=== PATIENT | male | born 1985 | race Hispanic/Latino ===

== ENCOUNTER 2018-07-24 14:46 | Emergency (ER) | payer MEDICARE ==
[2018-07-24] MEDS ORDERED: KETOROLAC TROMETHAMINE 60 MG/2 ML VIAL ONE (15:56)
[2018-07-24] MEDS ORDERED: ORPHENADRINE CITRATE 30 MG/ML ML ONE (15:56)
== END 2018-07-24 17:09 | disposition home or self-care (01) ==
LOC: EDH 14:46
DX: S00.83XA Contusion of other part of head, initial encounter (principal); S60.221A Contusion of right hand, initial encounter; S20.211A Contusion of right front wall of thorax, initial encounter; G89.29 Other chronic pain; V49.88XA Car occupant (driver) (passenger) injured in other specified transport accidents, initial encounter; Y93.89 Activity, other specified; Y92.410 Unspecified street and highway as the place of occurrence of the external cause; Y99.8 Other external cause status
CPT/HCPCS: 71046; 71100; 73130; 96372 ×2; 99284; J1885; J2360

== ENCOUNTER 2019-08-01 14:43 | Emergency (ER) | payer MEDICARE ==
[2019-08-01] MEDS ORDERED: ASPIRIN 325 MG TABLET ONE (15:11)
[2019-08-01 15:16] LABS: BASOPHILS % (AUTO) 0.4 % (0.0-5.0); EOSINOPHILS % (AUTO) 1.3 % (0.0-8.0); HEMATOCRIT 47.2 % (42-54); LYMPHOCYTES % (AUTO) 15.7 % (21.0-51.0); MEAN CORPUSCULAR HGB CONC 32.4 g/dL (32.0-36.0); MEAN CORPUSCULAR VOLUME 83.4 fL (79-99); MONOCYTES % (AUTO) 7.2 % (3.0-13.0); NEUTROPHILS % (AUTO) 74.3 % (40.0-77.0); PLATELET COUNT (AUTO) 297 K/uL (130-400); RED BLOOD CELL COUNT(AUTO) 5.66 MIL/uL (4.50-6.20); RED CELL DISTRIBUTION WIDTH 14.5 % (11.0-15.5); WHITE BLOOD COUNT (AUTO) 13.7 K/uL (4.8-10.8)
[2019-08-01 15:27] LABS: INR 0.89 (0.85-1.15); PARTIAL THROMBOPLASTIN TIME 25.2 SEC (26.3-35.5); PROTHROMBIN TIME 9.7 SEC (9.6-11.6)
[2019-08-01 15:30] LABS: CREATININE 1.1 mg/dL (0.5-1.5); POTASSIUM 3.9 mmol/L (3.5-5.1)
[2019-08-01 15:35] LABS: ALBUMIN 3.1 g/dL (3.5-5.0); BILIRUBIN,TOTAL 0.1 mg/dL (0.2-1.0); TOTAL PROTEIN, SERUM 7.2 g/dL (6.0-8.3)
== END 2019-08-01 17:19 | disposition left against medical advice (07) ==
LOC: EDH 14:43
DX: R07.89 Other chest pain (principal); G89.29 Other chronic pain; G47.30 Sleep apnea, unspecified
CPT/HCPCS: 36415; 71045; 80053; 82550; 83880; 84484; 85025; 85610; 85730; 87040; 93005

== ENCOUNTER 2025-02-16 20:18 | Emergency (ER) | payer MEDICARE, OTHER ==
[~2025-02-16] VITALS: Ht 175.3 cm; Wt 191.4 kg
[2025-02-16 20:28] VITALS: PULSE 107; RESP 22; O2SAT 100
--- NOTE | 2025-02-16 20:33 | NUR ---
INITIAL BIPAP SETTINGS IPAP - 16 EPAP - 8 RATE - 18 FIO2 - 80%
--- NOTE | 2025-02-16 20:35 | NUR ---
UPDATED BIPAP SETTINGS IPAP - 16 EPAP - 8 RATE - 18 FIO2 - 35%
[2025-02-16 20:36] LABS: ABG BASE EXCESS 1.4 mmol/L (-2.0-3.0); ABG HCO3 25.6 mmol/L (21.0-28.0); ABG OXYGEN SATURATION 99.2 % (94.0-98.0); ABG PCO2 39 mmHg (35-48); ABG PH 7.433 (7.350-7.450); CARBON MONOXIDE 1.6 % (0.5-1.5); DEVICE COMMENT RR JOSERN; PO2, ARTERIAL BG 248.1 mmHg (83.0-108.0); TEMPERATURE, CELSIUS BG 37.0 CELSIUS (35.5-37.0); VENT MODE, BG BIPAP 16,8 (ROOM AIR)
[2025-02-16 20:38] VITALS: PULSE 115; RESP 20; O2SAT 99
[2025-02-16 20:54] LABS: IMMATURE GRANULOCYTE ABSOLUTE 0.28 K/uL (0-1); NUCLEATED RED BLOOD CELLS 0.0 % (0.0-0.19); PLATELET COUNT (AUTO) 348 K/uL (130-400); RED BLOOD CELL COUNT(AUTO) 4.60 MIL/uL (4.50-6.20); RED CELL DISTRIBUTION WIDTH 15.7 % (11.0-15.5); WHITE BLOOD COUNT (AUTO) 12.7 K/uL (4.8-10.8)
[2025-02-16 21:07] LABS: CREATININE 1.0 mg/dL (0.5-1.3); GLOMERULAR FILTR. RATE CALC 98.0 mL/min (>90); GLUCOSE,RANDOM 146.0 mg/dL (70-105); SODIUM SERUM 141.0 mmol/L (136-145); UREA NITROGEN, BLOOD 14.0 mg/dL (7-18)
[2025-02-16 21:16] LABS: CREATINE KINASE, TOTAL 81.0 U/L (21-232)
--- NOTE | 2025-02-16 21:32 | EKG ---
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
[2025-02-16] MEDS: furoSEMIDE 100MG VIAL 10 MG/ML VIAL IVP ONE (21:41)
[2025-02-16 22:30] LABS: ADD UA MICROSCOPIC NO; APPEARANCE,URINE CLEAR (CLEAR); GLUCOSE, URINE (UA) NEGATIVE (NEGATIVE); LEUKOCYTE ESTERASE ,URINE NEGATIVE Leu/uL (NEGATIVE); NITRATE,URINE NEGATIVE (NEGATIVE); OCCULT BLOOD,URINE NEGATIVE (NEGATIVE)
[2025-02-16 22:32] VITALS: PULSE 111; RESP 18
[2025-02-16 22:33] VITALS: PULSE 111; RESP 18; O2SAT 99
--- NOTE | 2025-02-16 23:24 | ERN ---
ED Note History of Present Illness Stated Complaint: SOB Chief Complaint: Dyspnea/Respdistress Time Seen by MD: 20:36 Dictation: This is a 39-year-old morbidly obese male with known history of chronic respiratory failure and obstructive sleep apnea syndrome on CPAP presented to the emergency room with a 2 days of dyspnea respiratory distress and increasing swelling. He also continues to smoke and has some baseline cough with scant amounts of sputum. No fever chills or rigors. No hemoptysis. No chest pain pressure PND orthopnea no palpitations. Temperature 99 pulse 107 respirations 26 blood pressure 188/102 pulse oximetry 100% on room air Patient has chronic medical problems include COPD, history of congestive heart failure in the past details are unclear, DVT in both the legs, tobacco dependence. Patient also has a obstructive sleep apnea syndrome and uses CPAP at night Allergies: Coded Allergies: No Known Allergies (Unverified Allergy, Unknown, 07/24/18) Home Meds Active Scripts Furosemide (Lasix 20Mg Tab) 20 Mg Tablet, 1 TAB PO DAILY for 10 Days, #20 TAB 0 Refills Prov:RAUL YOUSSEF MD 02/16/25 Azithromycin (Zithromax) 500 Mg Tablet, 1 TAB PO DAILY for 5 Days, #5 TAB 0 Refills Prov:RAUL YOUSSEF MD 02/16/25 Prednisone (Prednisone) 20 Mg Tablet, 1 TAB PO AD for 6 Days, #14 TAB 0 Refills TAKE 1 TAB BY MOUTH THREE TIMES PER DAY X3 DAYS, THEN TAKE 1 TAB BY MOUTH TWICE A DAY X2 DAYS, THEN TAKE 1 TAB BY MOUTH ONCE A DAY X1 DAY. Prov:RAUL YOUSSEF MD 02/16/25 Past Medical History Past Medical History: CHF, COPD, Unknown Surgical History: Unknown RN Note Reviewed/Agreed w/PFSH: Yes Review of System Dictation Constitutional: Negative for fever,chills, and weight loss Eyes: Negative for injury, pain,redness, and discharge ENT: Negative for injury,pain or swelling Cardiovascular: Negative for chest pain, palpitations, and positive for edema Respiratory: Positive for shortness of breath, mild cough, and wheezing, Abdomen/GI: Negative for abdominal pain, nausea, vomiting, diarrhea, and constipation Back: Negative for injury and pain : Negative for injury, bleeding and discharge MS/Extremity: Negative for injury and deformity Skin: Negative for rash, and discoloration Neuro: Negative for headache, weakness, numbness, tingling, and seizure Psych: Negative for suicide ideation, homicidal ideation, and hallucinations Initial Vital Sign VS Vital Signs Date Time Temp Pulse Resp B/P (MAP) Pulse Ox O2 Delivery O2 Flow Rate FiO2 02/16/25 20:19 99.0 107 26 188/102 100 BIPAP 02/16/25 20:28 80 02/16/25 20:33 Physical Exam Dictation General: awake, alert, NAD extreme obesity Head/Face: Normocephalic, atraumatic Eyes: PERRL, EOMI, vision at baseline ENT: oral cavity clear, TMs clear, no signs of infection Neck: Trachea midline, supple, no nuchal rigidity Cardiovascular: RRR, normal S1/S2, No MRGs, no JVD Respiratory: Mild respiratory distress, decreased breath sounds bilaterally with prolonged expiratory phase, end expiratory wheezes to auscultation Abdomen: Soft, non-tender, non-distended, normal bowel sounds, no guarding or rebound. Skin: Warm, dry, normal turgor, no rash MS/Extremity: Pulses equal, no cyanosis, neurovascular intact, FROM Neuro: COAx4, GCS 15, strength 5/5, CN 2-12 intact, normal cerebellar exam, nor mal gait, Psych: Normal behavior, mood, and affect normal Extremities-1+ pitting edema without any palpable cords, Homans sign is negative Results (Laboratory/Radiology) Laboratory/Radiology Laboratory Tests Test 02/16/25 20:34 02/16/25 20:41 02/16/25 22:17 Blood Gas Specimen Type Arterial Arterial Blood pH 7.433 (7.350-7.450) Arterial Blood Partial Pressure CO2 39 mmHg (35-48) Arterial Blood Partial Pressure O2 248.1 mmHg (83.0-108.0) H Arterial Blood HCO3 25.6 mmol/L (21.0-28.0) Arterial Blood Oxygen Saturation 99.2 % (94.0-98.0) H Arterial Blood Base Excess 1.4 mmol/L (-2.0-3.0) Hemoglobin (Blood Gas) 12.2 g/dL (13.5-17.5) L Sodium (Blood Gas) 137 MMOL/L (136-145) Bedside Potassium (Blood Gas) 3.7 MMOL/L (3.4-4.5) Bedside Chloride (Blood Gas) 104 MMOL/L (98-107) Bedside Glucose (Blood Gas) 147 MG/DL (65-95) H Bedside Ionized Calcium (Blood Gas) 1.17 MMOL/L (1.15-1.33) Bedside Lactic Acid (Blood Gas) 1.13 MMOL/L (0.36-0.75) H Blood Gas Temperature 37.0 CELSIUS (35.5-37.0) Blood Gas Respiration Rate 18.0 min. Blood Gas Vent Mode BIPAP 16,8 (ROOM AIR) FiO2 80.0 % Blood Gas Specimen Comment RR JOSERN White Blood Count 12.7 K/uL (4.8-10.8) H Red Blood Count 4.60 MIL/uL (4.50-6.20) Hemoglobin 11.5 g/dL (14.0-18.0) L Hematocrit 37.7 % (42-54) L Mean Corpuscular Volume 82.0 fL (79-99) Mean Corpuscular Hemoglobin 25.0 pg (27.0-33.0) L Mean Corpuscular Hemoglobin Concent 30.5 g/dL (32.0-36.0) L Red Cell Distribution Width 15.7 % (11.0-15.5) H Platelet Count 348 K/uL (130-400) Mean Platelet Volume 8.5 fL (7.5-10.5) Immature Granulocyte % (Auto) 2.2 % (0-1) H Neutrophils (%) (Auto) 74.0 % (40.0-77.0) Lymphocytes (%) (Auto) 15.5 % (21.0-51.0) L Monocytes (%) (Auto) 6.5 % (3.0-13.0) Eosinophils (%) (Auto) 1.2 % (0.0-8.0) Basophils (%) (Auto) 0.6 % (0.0-5.0) Neutrophils # (Auto) 9.4 K/uL (1.8-7.7) H Lymphocytes # (Auto) 2.0 K/uL (1.0-4.8) Monocytes # (Auto) 0.8 K/uL (0.1-1.0) Eosinophils # (Auto) 0.15 K/uL (0.00-0.70) Basophils # (Auto) 0.08 K/uL (0.00-0.20) Absolute Immature Granulocyte (auto 0.28 K/uL (0-1) Nucleated Red Blood Cells 0.0 % (0.0-0.19) Red Blood Cell Morphology See comments Sodium Level 141 mmol/L (136-145) Potassium Level 3.5 mmol/L (3.5-5.1) Chloride Level 104 mmol/L (101-111) Carbon Dioxide Level 30 mmol/L (21-32) Blood Urea Nitrogen 14 mg/dL (7-18) Creatinine 1.0 mg/dL (0.5-1.3) Glomerular Filtration Rate Calc 98 mL/min (>90) Random Glucose 146 mg/dL (70-105) H Lactic Acid Level 1.8 mmol/L (0.8-2.5) Total Calcium 8.7 mg/dL (8.5-10.1) Total Creatine Kinase 81 U/L (21-232) # Troponin I High Sensitivity 7 ng/L (4-75) B-Type Natriuretic Peptide 16 pg/mL (0-100) Urine Color COLORLESS (YELLOW) Urine Appearance CLEAR (CLEAR) Urine pH 7.0 (5.0-8.0) Urine Specific [place] 1.008 (1.001-1.031) Urine Protein NEGATIVE mg/dL (NEGATIVE) Urine Glucose (UA) NEGATIVE mg/dL (NEGATIVE) Urine Ketones NEGATIVE mg/dL (NEGATIVE) Urine Occult Blood NEGATIVE (NEGATIVE) Urine Nitrate NEGATIVE (NEGATIVE) Urine Bilirubin NEGATIVE mg/dL (NEGATIVE) Urine Urobilinogen 0.2 mg/dL (0.2-1.0) Urine Leukocyte Esterase NEGATIVE Javi/uL Labs Reviewed?: Yes ED Course ED Course Orders Procedure Category Date Status Time Arterial Blood Gas + RT 02/16/25 Transmitted 20:30 Bipap Settings RT 02/16/25 Transmitted 20:32 Arterial Blood Gas LAB 02/16/25 Complete Arterial + 20:34 Iv Insertion CPOE 02/16/25 Transmitted 20:39 Pulse Ox(Continuous) RT 02/16/25 Transmitted 20:39 Vital Signs Per CPOE 02/16/25 Transmitted Routine 20:39 12 Lead Ekg Tracing- EKG 02/16/25 Complete Technical 20:39 Cbc With Differential LAB 02/16/25 Complete 20:39 Blood Cult LYNDA 02/16/25 In Process 20:39 Urinalysis Profile LAB 02/16/25 Complete 20:39 Culture Urine LYNDA 02/16/25 In Process 20:39 Creatine Kinase, Total LAB 02/16/25 Complete 20:39 Troponin I High LAB 02/16/25 Complete Sensitivity 20:39 Lactic Acid LAB 02/16/25 Complete 20:39 Basic Metabolic Panel LAB 02/16/25 Complete 20:39 Methylprednisolone PHA 02/16/25 Complete Succ 125mg (Solu-Medr 21:30 Ipratropium/Albuterol PHA 02/16/25 Complete Neb (Duoneb) 21:30 B-Type Natriuretic LAB 02/16/25 Complete Peptide 21:06 Chest 1vw RAD 02/16/25 Taken 21:06 Furosemide 100mg Vial PHA 02/16/25 Complete (Lasix 100mg Vial) 21:30 Current Medications Medications (Trade) Dose Ordered Sig/Abimael Route PRN Reason Start Time Stop Time Status Last Admin Dose Admin Albuterol (DUOneb) 1 UDVIAL ONCE ONCE IH 02/16/25 21:30 02/16/25 21:31 DC 02/16/25 22:30 Furosemide (LASix 100MG VIAL) 80 mg ONCE ONCE IVP 02/16/25 21:30 02/16/25 21:31 DC 02/16/25 21:41 Methylprednisolone Sodium Succinate (Solu-medROL 125MG) 125 mg ONCE ONCE IVP 02/16/25 21:30 02/16/25 21:31 DC 02/16/25 21:43 Vital Signs Date Time Temp Pulse Resp B/P (MAP) Pulse Ox O2 Delivery O2 Flow Rate FiO2 02/16/25 23:11 98 22 127/85 100 Bi-PAP+ 40 02/16/25 22:33 111 18 35 02/16/25 22:32 111 18 02/16/25 20:38 115 20 40 02/16/25 20:33 98.8 85 18 167/81 100 Bi-PAP+ 80 02/16/25 20:28 107 22 80 02/16/25 20:19 99.0 107 26 188/102 100 BIPAP Medical Decision Making MDM Differential diagnosis: COPD exacerbation, congestive heart failure, restrictive ventilatory impairment due to obesity and poor endurance, pulmonary embolus, bilateral pneumonia This is a 39-year-old morbidly obese male with known history of chronic respiratory failure and obstructive sleep apnea syndrome on CPAP presented to the emergency room with a 2 days of dyspnea respiratory distress and increasing swelling. He also continues to smoke and has some baseline cough with scant a mariana of sputum. No fever chills or rigors. No hemoptysis. No chest pain pressure PND orthopnea no palpitations. Temperature 99 pulse 107 respirations 26 blood pressure 188/102 pulse oximetry 100% on room air Patient has chronic medical problems include COPD, history of congestive heart failure in the past details are unclear, DVT in both the legs, tobacco dependence. Patient also has a obstructive sleep apnea syndrome and uses CPAP at night 10:40 p.m. labs reviewed CBC showed a white count of 12.7 hemoglobin 11.5 platelets 348. BNP 7 is with a normal limits. Lactic acid is 1.8 troponins are negative and brain natriuretic peptide is 16. Urinalysis is unremarkable for any infection Arterial blood gas on BiPAP showed a pH of 7.43 pCO2 of 39 PO2 of 240 Chest x-ray poor penetration left hemidiaphragm is slightly elevated with mildly prominent pulmonary vascular markings. I did not appreciate any focal infiltrate. Patient responded very well to steroid bronchodilator and a small dose of diuretic. He is to stay in the hospital and stated that he has a regular physician and that he would follow up with them. Instructed to return to the ER should his symptoms get worse Counseled on weight loss diet and exercise and smoking cessation. Rationale: Tests considered and ordered secondary to shared decision making include: Labs, chest x-ray, arterial blood gas Previous outside records reviewed: Old ER visits. Risk of complication and/or morbidity or mortality of patient management: None Medications-Per medication reconciliation Need for hospitalization: Patient does not meet criteria for hospitalization. Need for emergency major/minor surgery: No There are no social concerns with this patient. Prescription drug management Prescriptions will include symptomatic care Patient's prior external medical records from other ER visits were reviewed by me as indicated. Prior testing and results from previous visits were reviewed. Prior tests were taken into account with medical decision making and resource utilization, independent historian/historians were used to obtain complete medical history. I independently interpreted the test that were performed, results were reviewed by me and considered findings on radiology if ordered. Medical management and examination interpretation discussions were had by me with other qualified healthcare professionals as indicated for the patient's care. Problem List Problem List: (1) COPD with acute exacerbation (2) Chronic respiratory failure due to obstructive sleep apnea (3) Extreme obesity (4) Tobacco dependence DX & DISP Disposition: Discharge Departure Impression: Primary Impression: COPD with acute exacerbation Additional Impressions: Chronic respiratory failure due to obstructive sleep apnea, Tobacco dependence, Extreme obesity Condition: Stable Scripts Furosemide (Lasix 20Mg Tab) 20 Mg Tablet 1 TAB PO DAILY for 10 Days, #20 TAB 0 Refills Prov: RAUL YOUSSEF MD 02/16/25 Azithromycin (Zithromax) 500 Mg Tablet 1 TAB PO DAILY for 5 Days, #5 TAB 0 Refills Prov: RAUL YOUSSEF MD 02/16/25 Prednisone (Prednisone) 20 Mg Tablet 1 TAB PO AD for 6 Days, #14 TAB 0 Refills TAKE 1 TAB BY MOUTH THREE TIMES PER DAY X3 DAYS, THEN TAKE 1 TAB BY MOUTH TWICE A DAY X2 DAYS, THEN TAKE 1 TAB BY MOUTH ONCE A DAY X1 DAY. Prov: RAUL YOUSSEF MD 02/16/25 Additional Instructions: Patient and the caregiver have been informed of all the diagnostic tests and the imaging conducted during the today's visit to the emergency room and has verbalized understanding of the results I have personally reviewed and interpreted all diagnostic exams performed here in the ER today as well as the vital signs documented by the nursing staff. The patient is now being discharged to home and should follow up with the primary care physician or the specialist as directed by the ER staff. Follow-up with primary care provider in 1 to 2 days. Take medications as directed here in the emergency room. Okay to continue home medications unless otherwise discussed during your visit in the emergency room today. Return to your nearest emergency room if symptoms worsen or if there is no improvement. Call 911 if you need immediate assistance. Take Tylenol or Motrin [id number] as needed and if no contraindications are present. Increase oral hydration. A wound culture or urine culture was ordered here in the emergency room department please follow-up with primary care provider and advise them to get repeat ports from our facility. If you had any Obdulio wrap/splints that were applied here, please do not remove them until you see your primary care or specialty. Patient sees multimedia technician on a regular basis he will follow up with them Referrals: VIANEY CONNELL MD (PCP) RAUL YOUSSEF MD Feb 16, 2025 23:23
[2025-02-16 23:46] VITALS: BP 169/99; PULSE 100; RESP 22; TEMP 98.7; O2SAT 98
--- NOTE | 2025-02-17 00:25 | HMCIMG ---
EXAM: CR Chest, 1 view. CLINICAL HISTORY: Respiratory distress. COMPARISON: None. FINDINGS: The lungs show no infiltration or other acute findings. Obscured left costophrenic angle due to overlying chest soft tissue. Underlying mild pleural effusion cannot be excluded. No left pleural effusion or pneumothorax. The cardio mediastinal silhouette is within normal limits. No acute osseous abnormality. IMPRESSION: Obscured left costophrenic angle due to overlying chest soft tissue. Underlying mild pleural effusion cannot be excluded. Otherwise, no acute pathology. /[place]
== END 2025-02-16 23:50 | disposition home or self-care (01) ==
LOC: EDH 20:18
DX: 000.000 (principal); J44.1 Chronic obstructive pulmonary disease with (acute) exacerbation; J96.10 Chronic respiratory failure, unspecified whether with hypoxia or hypercapnia; F17.200 Nicotine dependence, unspecified, uncomplicated; I50.9 Heart failure, unspecified; Z79.899 Other long term (current) drug therapy
CPT/HCPCS: 99285; 82435; 82550; 82947; 84484; 84132; 84295; 80048; 82803; 83880; 85025; 85018; 87040 ×2; 87086; 83605 ×2; 81003; 36415; 71045; 96374; 96375; 93005; 36600; 94640; 94660; J2919; J1938